=== PATIENT | female | born 1965 | race Caucasian/White ===

== ENCOUNTER 2017-06-23 15:19 | Emergency (ER) | payer OTHER ==
[2017-06-23 15:37] VITALS: BMI 67.6
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
[2017-06-23] MEDS ORDERED: ACETAMINOPHEN 1000 MG/100 ML VIAL (NON FORMULARY) IVPB ONE (15:42)
[2017-06-23] MEDS ORDERED: ACETAMINOPHEN 500 MG TABLET (FP) PO ONE (15:50)
[2017-06-23] MEDS ORDERED: ACETAMINOPHEN 325 MG TABLET (FP) ONE (15:50)
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
[2017-06-23] MEDS ORDERED: morphine CARPU-JECT 4 MG/1 ML DISP.SYRIN IVPUSH ONE (18:20)
[2017-06-23] MEDS ORDERED: morphine CARPU-JECT 2 MG/1 ML DISP.SYRIN IM ONE (18:31)
[2017-06-23] MEDS ORDERED: morphine SULFATE 4 MG/ML VIAL ONE (18:33)
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
[2017-06-23 19:27] VITALS: BP 134/90; PULSE 72
== END 2017-06-23 20:20 | disposition home or self-care (01) ==
LOC: JER 15:19
PROC: 3E023NZ Introduction of Analgesics, Hypnotics, Sedatives into Muscle, Percutaneous Approach (ICD-10-PCS; principal; 2017-06-23)
DX: S13.4XXA Sprain of ligaments of cervical spine, initial encounter (principal); M54.6 Pain in thoracic spine; V54.5XXA Driver of pick-up truck or van injured in collision with heavy transport vehicle or bus in traffic accident, initial encounter; Y92.488 Other paved roadways as the place of occurrence of the external cause; Y93.89 Activity, other specified; Y99.8 Other external cause status; I10 Essential (primary) hypertension; E78.00 Pure hypercholesterolemia, unspecified; E03.9 Hypothyroidism, unspecified; K21.9 Gastro-esophageal reflux disease without esophagitis; F17.210 Nicotine dependence, cigarettes, uncomplicated
CPT/HCPCS: 70450-TC; 71046-TC-FY; 72070-TC-FY; 72125-TC; 73030-TC-RT-FY; 99282-25